=== PATIENT | female | born 1990 | race Caucasian/White ===

== ENCOUNTER 2016-09-13 10:02 | Inpatient (IN) | payer OTHER ==
[2016-09-13] MEDS ORDERED: OXYTOCIN/RINGERS LACTATE 1,000 ML IV PRN (12:13)
[2016-09-13] MEDS ORDERED: OLIVE OIL 118 ML BTL MISC PRN (12:13)
[2016-09-13] MEDS ORDERED: LIDOCAINE 1% 30 ML SDV SC PRN (12:13)
[2016-09-13] MEDS ORDERED: LR 1,000 ML IV PRN (12:13)
[2016-09-13] MEDS ORDERED: TERBUTALINE SULFATE 1 MG/ML VIAL IV PRN (12:13)
[2016-09-13] MEDS ORDERED: EPSOM SALT 454 GM TP PRN (12:13)
[2016-09-13 12:29] LABS: % IMMATURE GRANULYOCYTES 0.9 % (0.0-1.1); ABSOLUTE IMMATURE GRANULOCYTES 0.08 10^3/uL (0.00-0.10); ADD DIFF? NO; ADD MORPH? NO; ADD SCAN? NO; ATYPICAL LYMPHOCYTE FLAG 0 (0-99); FRAGMENT RBC FLAG 0 (0-99); HEMATOCRIT 39.3 % (38.0-47.0); HEMOGLOBIN 13.1 g/dL (12.6-16.3); LEFT SHIFT FLG 0 (0-99); LIPEMIA HEMOLYSIS FLAG 80 (0-99); MEAN CELL HEMOGLOBIN 30.2 pg (27.9-34.1); MEAN CELL HEMOGLOBIN CONCENTR. 33.3 g/dL (32.4-36.7); MEAN CELL VOLUME 90.6 fL (81.5-99.8); MEAN PLATELET VOLUME 9.2 fL (8.7-11.7); PLATELET CLUMPS FLAG 10 (0-99); PLATELET COUNT 249 10^3/uL (150-400); RED BLOOD CELL COUNT 4.34 10^6/uL (4.18-5.33); RED CELL DISTRIBUTION WIDTH 14.3 % (11.5-15.2)
[2016-09-13] MEDS ORDERED: LR 500 ML IV PRN (12:48)
--- NOTE | 2016-09-13 12:52 | PDGENHP ---
History and Physical - Chief Complaint leakage of fluid - History of Present Illness Pt is a 26 y/o at 39+3 weeks EGA admitted for PROM at term. She reports having leakage of fluid since 0630 this AM. Always clear fluid. She is feeling contractions more frequently now. No bleeding, +good FM. GBS negative. History Information - Allergies/Home Medication List Allergies/Adverse Reactions: Sulfa (Sulfonamide Antibiotics) Allergy (Verified 09/13/16 12:51) Home Medications: 1 tab PO DAILY 09/13/16 [Last Taken Unknown] I have personally reviewed and updated: family history, medical history, social history, surgical history Past Medical History: Hayfever, right breast fibroadenoma - Surgical History Additional surgical history: Sinus polyp removal, sinus revision surgery, breast biopsy - Social History Smoking Status: Never smoked Review of Systems ROS: 10pt was reviewed & negative except for what was stated in HPI & below Physical Exam Constitutional: no apparent distress, appears nourished Cardiovascular: regular rate and rhythym Respiratory: no respiratory distress Gastrointestinal: soft, non-tender abdomen, other (CX 1-2/90/-2, gross evidence of ruptured membranes) Lab Data & Imaging Review 09/13/16 12:00 WBC 8.46 10^3/uL (3.80-9.50) 09/13/16 12:00 RBC 4.34 10^6/uL (4.18-5.33) 09/13/16 12:00 Hgb 13.1 g/dL (12.6-16.3) 09/13/16 12:00 Hct 39.3 % (38.0-47.0) 09/13/16 12:00 MCV 90.6 fL (81.5-99.8) 09/13/16 12:00 MCH 30.2 pg (27.9-34.1) 09/13/16 12:00 MCHC 33.3 g/dL (32.4-36.7) 09/13/16 12:00 RDW 14.3 % (11.5-15.2) 09/13/16 12:00 Plt Count 249 10^3/uL (150-400) 09/13/16 12:00 MPV 9.2 fL (8.7-11.7) 09/13/16 12:00 Neut % (Auto) 72.5 % (39.3-74.2) 09/13/16 12:00 Lymph % (Auto) 19.1 % (15.0-45.0) 09/13/16 12:00 Wilson % (Auto) 6.0 % (4.5-13.0) 09/13/16 12:00 Eos % (Auto) 1.1 % (0.6-7.6) 09/13/16 12:00 Baso % (Auto) 0.4 % (0.3-1.7) 09/13/16 12:00 Nucleat RBC Rel Count 0.0 % (0.0-0.2) 09/13/16 12:00 Absolute Neuts (auto) 6.13 10^3/uL (1.70-6.50) 09/13/16 12:00 Absolute Lymphs (auto) 1.62 10^3/uL (1.00-3.00) 09/13/16 12:00 Absolute Monos (auto) 0.51 10^3/uL (0.30-0.80) 09/13/16 12:00 Absolute Eos (auto) 0.09 10^3/uL (0.03-0.40) 09/13/16 12:00 Absolute Basos (auto) 0.03 10^3/uL (0.02-0.10) 09/13/16 12:00 Absolute Nucleated RBC 0.00 10^3/uL (0-0.01) 09/13/16 12:00 Immature Gran % 0.9 % (0.0-1.1) 09/13/16 12:00 Immature Gran # 0.08 10^3/uL (0.00-0.10) 09/13/16 12:00 Assessment & Plan Assessment: Pt is a 26 y/o at 39+3 weeks EGA admitted with PROM at term Plan: 1) status reassuring 2) Labor: PROM at term - no evidence of cervical change in the last 2 hours and none since time of rupture 6 hours ago. Advised augmentation of labor w/ IV pitocin. All r/b/i/a reviewed, and she agrees to proceed. Will start per standard protocol. 3) GBS neg 4) Pain: No issues at this time.
[2016-09-13] MEDS ORDERED: OXYTOCIN/RINGERS LACTATE 500 ML IV SCH (13:00)
[2016-09-13] MEDS ORDERED: LIDOCAINE 1% 30 ML SDV ONE (14:18)
[2016-09-13] MEDS ORDERED: OLIVE OIL 118 ML BTL ONE (14:18)
[2016-09-13] MEDS ORDERED: AMMONIA AROMATIC 1 EACH AMP IH ONE (14:18)
[2016-09-13] MEDS ORDERED: TERBUTALINE SULFATE 1 MG/ML VIAL ONE (14:18)
[2016-09-13] MEDS ORDERED: OXYTOCIN 10 UNIT/ML VIAL ONE (14:19)
[2016-09-13] MEDS ORDERED: MISOPROSTOL 200 MCG TAB ONE (14:19)
[2016-09-13] MEDS ORDERED: fentaNYL 100 MCG/2 ML INJ IVP ONE (15:11)
[2016-09-13] MEDS: fentaNYL 100 MCG/2 ML INJ IVP PRN ×2 (15:20→15:29)
[2016-09-13] MEDS ORDERED: BUPIVACAINE 0.25% 30 ML SDV ONE ×2 (15:59→16:47)
[2016-09-13] MEDS ORDERED: PHENYLEPHRINE HCL 100 MCG/ML SYR ONE (16:00)
[2016-09-13] MEDS ORDERED: fentaNYL 100 MCG/2 ML INJ ONE (16:01)
[2016-09-13] MEDS ORDERED: fentaNYL 2MCG/ML/BUP 0.1% RTU 100 ML BAG EP ONE (16:48)
[2016-09-13] MEDS ORDERED: ONDANSETRON 4 MG/2 ML VIAL IVP PRN (17:33)
[2016-09-13] MEDS ORDERED: PHENYLEPHRINE HCL 100 MCG/ML SYR IVP PRN (17:33)
[2016-09-13] MEDS ORDERED: NALOXONE HCL 0.4 MG/ML INJ IVP PRN (17:33)
[2016-09-13] MEDS ORDERED: fentaNYL 2MCG/ML/BUP 0.1% RTU 100 ML EP SCH (18:00)
[2016-09-13] MEDS ORDERED: LR 500 ML IV SCH (18:00)
--- NOTE | 2016-09-13 18:43 | OBPROG ---
OBG Progress Note Assessment/Plan: Assessment: 26 y/o at 39+3 wks EGA admitted for PROM at term, now in active labor, ready to push Plan: 1) status reassuring 2) Pain well controlled w/ PITO 3) GBS neg 4) Labor: Will start pushing 09/13/16 1805 Subjective: Pt comfortable after PITO x 2 attempts. Objective: 09/13/16 12:00 Patient ABO/Rh AB POSITIVE 09/13/16 12:00 - SVE Dilation (cm): 10 Effacement (%): 100 Station: +2 Current Contraction Pattern: Regular FHR (bpm): 125 FHR Pattern Variability: Moderate FHR Category: 1 Amniotic Fluid Color: Clear ICD10 Worksheet Patient Problems: Problems Problem Status Onset PROM with onset of labor within 24 hours of rupture Acute - ICD10 Problem Qualifiers (1) PROM with onset of labor within 24 hours of rupture Qualifiers: PROM gestational age: full term Qualified Code(s): O42.02 - Full-term premature rupture of membranes, onset of labor within 24 hours of rupture
--- NOTE | 2016-09-13 20:53 | OBPROC ---
- Labor and Delivery Onset of Contractions Date: 09/13/16 Onset of Contractions Time: 06:30 Onset of Contractions Type: Augmented Rupture of Membranes Date: 09/13/16 Rupture of Membranes Time: 06:30 Rupture of Membranes Type: Spontaneous Amniotic Fluid Color: Clear Dilation Complete Time: 17:47 Delivery Type: Vacuum Placenta Delivery Date: 09/13/16 Placenta Delivery Time: 20:05 Episiotomy/Laceration: 2nd Degree, Other (Specify) (right vaginal sidewall starting at 0900 at hymen extending superiorly.) Repair: 2-0, Vicryl - Medications Labor Augmentation/Induction Meds Used: Pitocin Labor Augmentation/Induction Indication: Other (Specify) (PROM at term) Anesthesia: Epidural - [place] Info A Delivery Date: 09/13/16 Delivery Time: 20:03 Sex of Infant: Female Score (1 Min): 8 Score (5 Min): 9 (FHT showed increasing tachycardia with decreased variability, so counseled to proceed with VAVD. All r/b/i/a reviewed to include risks of vaginal tearing, PPH, cephalohematoma or subgaleal hemorrhage. She and agreed to proceed. Baby OA position. Vacuum applied and good descent noted w/ next push, 1 pop-off noted. Baby had been brought to [facility]. 2nd application of the vacuum made, and 2nd pop off. Patient then pushed over MLE and delivered a female infant, placed on maternal abdomen. A good spontaneous cry noted. Delayed cord clamping x 2 minute, then clamped x 2 and cut. Cord gases obtained and were reassuring w/ arterial pH of 7.27 and BE of -7. Placenta delivered easily and intact. Uterus massaged, pitocin given IV. Cervix intact. Small sidewall laceration on right side noted and repaired w/ running locked stitch w/ visualization obtained using sidewall retractor; only about 3cm long. Separate 2nd degree lac noted; sphincter intact; capsule reapproximated w/ 2 interrupted stitches; then, remaining repair completed in usual fashion using 2-0 vicryl w/ crown stitch. All hemostatic, mother and baby doing well, baby breast feeding.)
[2016-09-13] MEDS ORDERED: ACETAMINOPHEN 325 MG TAB PO PRN (20:54)
[2016-09-13] MEDS ORDERED: HYDROCORTISONE 0.5% CREAM TP PRN (20:54)
[2016-09-13] MEDS ORDERED: SIMETHICONE 80 MG TAB CHEW PO PRN (20:54)
[2016-09-13] MEDS ORDERED: HYDROCODONE/APAP 5/325 TAB PO PRN (20:54)
[2016-09-13] MEDS: IBUPROFEN 600 MG TAB PO PRN (21:02)
[2016-09-14] MEDS: IBUPROFEN 600 MG TAB PO PRN ×4 (02:36→20:44)
[2016-09-14 04:24] VITALS: O2SAT 96
[2016-09-14] MEDS: DOCUSATE SODIUM 100 MG CAP PO PRN ×2 (08:46→20:44)
[2016-09-14 10:02] VITALS: PULSE 81
--- NOTE | 2016-09-14 10:40 | SOAPPROG ---
SOAP Progress Note Assessment/Plan: Assessment: PPD#1 s/p VAVD Rh pos, Rub imm Recovering well Plan: Routine pp care Perineal FPC PPD#2 09/14/16 10:39 Subjective: Baby well. Not a lot of sleep. Pain well controlled with ibuprofen. Voiding normally. Tolerating regular diet. No heavy bleeding. Overall feeling well. Objective: Vital Signs Temp Pulse Resp BP Pulse Ox 36.6 C 81 20 115/62 96 09/14/16 08:00 09/14/16 08:00 09/14/16 08:00 09/14/16 08:00 09/14/16 08:00 Laboratory Results 09/14/16 06:20 09/13/16 09/14/16 09/15/16 05:59 05:59 05:59 Intake Total 3500 Output Total 300 Balance 3200 Gen: NAD Breasts: soft Resp: unlabored CV: reg rate Abd: soft, nontender, uterus firm below U Ext: no edema ICD10 Worksheet Patient Problems: Problems Problem Status Onset PROM with onset of labor within 24 hours of rupture Acute
[2016-09-15] MEDS: IBUPROFEN 600 MG TAB PO PRN ×2 (03:14→10:20)
[2016-09-15 09:08] VITALS: BP 101/60; RESP 16; TEMP 97.5
[2016-09-15] MEDS: DOCUSATE SODIUM 100 MG CAP PO PRN (10:20)
--- NOTE | 2016-09-15 10:38 | OBGCSDC ---
General Delivery Information - General Info : 1 Para: 1 Delivery Date: 09/13/16 Delivery Physician/CNM: Joselin Christopher Labs: Patient ABO/Rh AB POSITIVE 09/13/16 12:00 Hct 34.5 % (38.0-47.0) L 09/14/16 06:20 - Info Infant A Sex of : Female Score (1 Min): 8 Score (5 Min): 9 (FHT showed increasing tachycardia with decreased variability, so counseled to proceed with VAVD. All r/b/i/a reviewed to include risks of vaginal tearing, PPH, cephalohematoma or subgaleal hemorrhage. She and agreed to proceed. Baby OA position. Vacuum applied and good descent noted w/ next push, 1 pop-off noted. Baby had been brought to . 2nd application of the vacuum made, and 2nd pop off. Patient then pushed over MLE and delivered a female , placed on maternal abdomen. A good spontaneous cry noted. Delayed cord clamping x 2 minute, then clamped x 2 and cut. Cord gases obtained and were reassuring w/ arterial pH of 7.27 and BE of -7. Placenta delivered easily and intact. Uterus massaged, pitocin given IV. Cervix intact. Small sidewall laceration on right side noted and repaired w/ running locked stitch w/ visualization obtained using sidewall retractor; only about 3cm long. Separate 2nd degree lac noted; sphincter intact; capsule reapproximated w/ 2 interrupted stitches; then, remaining repair completed in usual fashion using 2-0 vicryl w/ crown stitch. All hemostatic, mother and baby doing well, baby breast feeding.) Vaginal - Diagnosis Labor: Augmented Rupture of Membranes Type: Spontaneous Amniotic Fluid Color: Clear Repair: 2-0, Vicryl - Operations/Procedures Delivery Type: Vacuum - Hospital Course Antepartum: Uncomplicated first . Spontaneous PROM, clear fluid, GBS neg Intrapartum: AOL of labor with pitocin for PROM. VAVD after 3 hrs pushing for tachycardia. 2nd degree and right sulcal laceration, repaired : . Routine pp care. Meeting all milestones on PPD#2 Rh pos, Rub imm. s/p tdap - Delivery Anesthesia: Epidural Discharge Information - Discharge Information Discharge Medications: Other (Specify) (colace) Complications: none Condition: Good Instruction/Follow Up: Six Weeks Discharge Physician/CNM: Apurva Riojas Discharge Date: 09/15/16 Dictated: No
== END 2016-09-15 11:50 | disposition home or self-care (01) | DRG 775 ==
LOC: FLD 10:02 → FOB 22:42
PROVIDERS: ADMIT Obstetrics & Gynecology; ATTEND Obstetrics & Gynecology
PROC: 10D07Z6 Extraction of Products of Conception, Vacuum, Via Natural or Artificial Opening (ICD-10-PCS; principal; 2016-09-13)
PROC: 0KQM0ZZ Repair Perineum Muscle, Open Approach (ICD-10-PCS; principal; 2016-09-13)
DX: O42.02 Full-term premature rupture of membranes, onset of labor within 24 hours of rupture (principal); O70.1 Second degree perineal laceration during delivery; O76 Abnormality in fetal heart rate and rhythm complicating labor and delivery; Z3A.39 39 weeks gestation of pregnancy; Z37.0 Single live birth
CPT/HCPCS: J2370; J2590; J3010; J3105